=== PATIENT | female | born 2000 | race Caucasian/White ===

== ENCOUNTER 2020-05-04 09:32 | Observation (INO) | payer OTHER ==
[2020-05-04] MEDS ORDERED: IV RINGERS,LACTATED 1000ML 1,000 ML IV SCH (10:00)
--- NOTE | 2020-05-04 11:51 | PDOC1 ---
[facility] [employer] [facility] H&P Date of Admission: Date of Admission: May 04, 2020 at 09:32 History of Present Illness: EDC: 08/24/20 LMP: [birth year] 19y [id number] @ 24.0 by L=14 (per pt) who presented to [place] after a fall. The pt fell down a flight of stairs at home. The pt feels that there may have been a loose step. She landed on her wiggins and scrapped her foot. She ultimately landed on her side. In the ER dopplered FHT were above 200. The pt was transferred to [place] for monitoring. The pt gets her care with Fatoumata Lynn CNM. PMH: Denies PSH: Denies Meds: PNV All: NKDA OBHx: 1 x SAB Home Health Aide: 11yo / regular SH: no tob, no EtOH FH: GM ovarian CA Physical Exam: PE: GENERAL: No apparent distress. Alert and oriented. HEENT: Head normocephalic, atraumatic. NECK: Supple LUNGS: Clear to auscultation. HEART: RRR, S1, S2 present, pulses intact ABDOMEN: Soft, positive bowel sounds. EXTREMITIES: No cyanosis or edema. NEUROLOGIC: Normal speech, normal tone PSYCHIATRIC: Normal affect, normal mood. SKIN: No ulceration. FHT: 150s 10x10 acels/ no decels/mLTV [place]: quiet Labs: WBC 10.9 Hgb 13.2 CMP wnl Assessment & Plan: A/P 19y [id number] @ 24.0 by L=14 (per pt) 1.) Trauma fall, did not land on abd, Pt has been monitored greater than 4hrs after the event. NST reassuring for gestational age, will obtained ultrasound. Pt w/o ctxs, VB, or abd pain. If ultrasound reassuring will d/c pt going. 2.) T/S pending, pt believes she is Rh pos 3.) Fetus reassuring 4.) GBS unknown KANIKA CHIANG MD May 04, 2020 11:51
--- NOTE | 2020-05-04 11:57 | RAD ---
Limited OB ultrasound greater than 14 weeks 05/04/2020 Clinical History: Second trimester . The patient fell down 20 stairs. Technique: A real-time ultrasound examination of the gravid uterus was performed. Multiple images wer e obtained. Findings: There is a single living IUP. The fetus is in a cephalic position. cardiac and somati c activity is seen. The heart rate is 139 beats per minutes. The maternal cervix is closed. It measures 4.75 cm in length. The placenta is anterior. No abnormality is seen. The amniotic fluid volu me is within normal limits. Neither maternal ovary is visualized. No adnexal mass is seen. No pelvic free fluid is noted. The following measurements were obtained: BPD 5.82 cm 23 weeks 6 days HC 21.69 cm 23weeks 5 days AC 19.37 cm 24weeks 1 days FL 4.28 cm 24 weeks 0 days The estimated gestational age by ultrasound is 24 weeks 0 days plus or minus a standard deviation of 10 days. The estimated date of delivery by ultrasound is 08/24/2020. Detailed evaluation of anatomy was not performed. No gross abnormality is noted. Impression: Single living IUP with an estimated gestational age by ultrasound of 24 weeks0 days +/- a standard deviation of 10 days. The estimated date of delivery by ultrasound is09/12/2020. Electronically signed by: Sergo Villanueva MD (05/04/2020 11:45 AM) [id number]
== END 2020-05-04 12:45 | disposition home or self-care (01) ==
LOC: 3 SO LND 09:32
PROVIDERS: ADMIT Obstetrics & Gynecology; ATTEND Obstetrics & Gynecology
DX: O9A.212 Injury, poisoning and certain other consequences of external causes complicating pregnancy, second trimester (principal); S99.929A Unspecified injury of unspecified foot, initial encounter; C56.9 Malignant neoplasm of unspecified ovary; Z3A.24 24 weeks gestation of pregnancy; W10.9XXA Fall (on) (from) unspecified stairs and steps, initial encounter; Y93.89 Activity, other specified; Y92.89 Other specified places as the place of occurrence of the external cause; Y99.8 Other external cause status
CPT/HCPCS: 36415; 59025; 76805; 86850; 86900; 86901; G0378; G0379